=== PATIENT | female | born 1990 | race American Indian/Alaskan Native ===

== ENCOUNTER 2019-04-21 10:37 | Outpatient (CLI) | payer OTHER | END 2019-04-21 13:33 | disposition home or self-care (01) | LOC: LAB 10:37 → TRG 13:08 → LAB 13:33 | PROVIDERS: ATTEND Nurse Practitioner Women's Health | DX: O26.893 Other specified pregnancy related conditions, third trimester (principal); Z3A.28 28 weeks gestation of pregnancy; Z67.21 Type B blood, Rh negative | CPT/HCPCS: 86850; 86900; 86901; 96372; J2790 ==

== ENCOUNTER 2019-07-10 15:28 | Observation (INO) | payer OTHER ==
[2019-07-10] MEDS ORDERED: LORazepam 2 MG/ML VIAL IV ONE (16:02)
[2019-07-10] MEDS ORDERED: SODIUM CHLORIDE 0.9% 1000 ML 1,000 ML IV ONE (16:02)
[2019-07-10] MEDS ORDERED: MAGNESIUM SULFATE 4 GM/100 ML BAG IV ONE (16:03)
--- NOTE | 2019-07-10 16:23 | Emergency Department Report ---
ED General Adult HPI - General Chief complaint: Seizure Stated complaint: SEZUIRE Time Seen by Provider: 07/10/19 16:02 Source: patient Mode of arrival: Wheelchair Limitations: No Limitations - History of Present Illness Initial comments: Patient is a 28-year-old F Slovak female who is 4 days status post with delivery of a healthy child who is had a seizure prior to arrival. Patient is never had a history of seizures. She was not diagnosed with preeclampsia during her . Patient was at home about to take a nap and then the next thing she knew she was in the ambulance. Her significant other stated that she was having tonic-clonic movements and was postictal prior to arrival. Patient states she has very mild headache at this time but otherwise feels well. - Related Data Home Medications Medication Instructions Recorded Confirmed Last Taken Valacyclovir HCl [Valacyclovir] 1 tab PO QDAY 07/03/19 07/03/19 07/03/19 12:00 Previous Rx's Medication Instructions Recorded Last Taken Type Ferrous Sulfate [Feosol 325 MG tab] 325 mg PO BID #60 tablet 07/06/19 Unknown Rx Ibuprofen [Motrin 800 MG tab] 800 mg PO Q8HR PRN #30 tablet 07/06/19 Unknown Rx oxyCODONE /ACETAMINOPHEN [Percocet 1 tab PO Q6HR PRN #40 tablet 07/06/19 Unknown Rx 5/325] Allergies Allergy/AdvReac Type Severity Reaction Status Date / Time No Known Allergies Allergy Verified 04/21/19 13:11 ED Review of Systems ROS: Stated complaint: SEZUIRE Other details as noted in HPI Comment: All other systems reviewed and negative ED Past Medical Hx - Past Medical History Previous Medical History?: No Hx Hypertension: No Hx Heart Attack/AMI: No Hx Congestive Heart Failure: No Hx Diabetes: No Hx Deep Vein Thrombosis: No Hx Liver Disease: No Hx Renal Disease: No Hx Sickle Cell Disease: No Hx Seizures: No Hx Asthma: No Hx COPD: No Hx HIV: No - Surgical History Past Surgical History?: Yes Hx Pacemaker: No Hx Internal Defibrillator: No Additional Surgical History: C section. tonsilectomy - Social History Smoking Status: Never Smoker - Medications Home Medications: Home Medications Medication Instructions Recorded Confirmed Last Taken Type Valacyclovir HCl [Valacyclovir] 1 tab PO QDAY 07/03/19 07/03/19 07/03/19 12:00 History Ferrous Sulfate [Feosol 325 MG tab] 325 mg PO BID #60 tablet 07/06/19 Unknown Rx Ibuprofen [Motrin 800 MG tab] 800 mg PO Q8HR PRN #30 tablet 07/06/19 Unknown Rx oxyCODONE /ACETAMINOPHEN [Percocet 1 tab PO Q6HR PRN #40 tablet 07/06/19 Unknown Rx 5/325] ED Physical Exam - General Limitations: No Limitations General appearance: alert, in no apparent distress - Head Head exam: Present: atraumatic, normocephalic - Eye Eye exam: Present: normal appearance - ENT ENT exam: Present: mucous membranes moist - Neck Neck exam: Present: normal inspection - Respiratory Respiratory exam: Present: normal lung sounds bilaterally. Absent: respiratory distress, wheezes, rales - Cardiovascular Cardiovascular Exam: Present: regular rate, normal rhythm, normal heart sounds. Absent: systolic murmur, diastolic murmur, rubs, gallop - GI/Abdominal GI/Abdominal exam: Present: soft, normal bowel sounds. Absent: distended, tenderness, guarding, rebound - Extremities Exam Extremities exam: Present: normal inspection - Back Exam Back exam: Present: normal inspection - Neurological Exam Neurological exam: Present: alert, oriented X3 - Psychiatric Psychiatric exam: Present: normal affect, normal mood - Skin Skin exam: Present: warm, dry, intact, normal color. Absent: rash ED Course Vital Signs 07/10/19 07/10/19 07/10/19 15:49 15:54 16:31 Temperature 98.2 F Pulse Rate 120 H Respiratory 22 Rate Blood Pressure 148/95 O2 Sat by Pulse 100 98 Oximetry 07/10/19 07/10/19 07/10/19 16:35 16:46 17:00 Temperature 98.4 F Pulse Rate 114 H 114 H Respiratory 24 14 Rate Blood Pressure 150/85 150/85 150/85 O2 Sat by Pulse 100 100 100 Oximetry 07/10/19 17:16 Temperature Pulse Rate 99 H Respiratory 31 H Rate Blood Pressure 146/94 O2 Sat by Pulse 99 Oximetry ED Medical Decision Making - Lab Data Result diagrams: 07/10/19 16:24 07/10/19 16:24 Lab Results 07/10/19 07/10/19 07/10/19 Range/Units 16:15 16:24 16:24 WBC 11.3 H (4.5-11.0) K/mm3 RBC 3.83 (3.65-5.03) M/mm3 Hgb 10.8 (10.1-14.3) gm/dl Hct 31.6 (30.3-42.9) % MCV 82 (79-97) fl MCH 28 (28-32) pg MCHC 34 (30-34) % RDW 16.2 H (13.2-15.2) % Plt Count 435 (140-440) K/mm3 Lymph % (Auto) 9.8 L (13.4-35.0) % Harmon % (Auto) 4.0 (0.0-7.3) % Eos % (Auto) 0.8 (0.0-4.3) % Baso % (Auto) 0.2 (0.0-1.8) % Lymph # 1.1 L (1.2-5.4) K/mm3 Harmon # 0.5 (0.0-0.8) K/mm3 Eos # 0.1 (0.0-0.4) K/mm3 Baso # 0.0 (0.0-0.1) K/mm3 Seg Neutrophils % 85.2 H (40.0-70.0) % Seg Neutrophils # 9.6 H (1.8-7.7) K/mm3 Sodium 139 (137-145) mmol/L Potassium 3.7 (3.6-5.0) mmol/L Chloride 105.6 (98-107) mmol/L Carbon Dioxide 19 L (22-30) mmol/L Anion Gap 18 mmol/L BUN 13 (7-17) mg/dL Creatinine 1.0 (0.7-1.2) mg/dL Estimated GFR > 60 ml/min BUN/Creatinine Ratio 13 % Glucose 84 (65-100) mg/dL Calcium 8.4 (8.4-10.2) mg/dL Total Bilirubin 0.20 (0.1-1.2) mg/dL AST 24 (5-40) units/L ALT 16 (7-56) units/L Alkaline Phosphatase 114 (35-129) units/L Total Protein 7.0 (6.3-8.2) g/dL Albumin 3.1 L (3.9-5) g/dL Albumin/Globulin Ratio 0.8 % Urine Color Colorless (Yellow) Urine Turbidity Clear (Clear) Urine pH 7.0 (5.0-7.0) Ur Specific [place] 1.003 (1.003-1.030) Urine Protein <15 mg/dl (Negative) mg/dL Urine Glucose (UA) Neg (Negative) mg/dL Urine Ketones Neg (Negative) mg/dL Urine Blood Lg (Negative) Urine Nitrite Neg (Negative) Urine Bilirubin Neg (Negative) Urine Urobilinogen < 2.0 (<2.0) mg/dL Ur Leukocyte Esterase Neg (Negative) Urine WBC (Auto) 1.0 (0.0-6.0) /HPF Urine RBC (Auto) 1.0 (0.0-6.0) /HPF U Epithel Cells (Auto) < 1.0 (0-13.0) /HPF - Medical Decision Making Patient will be admitted for observation at labor and delivery. the assumption os mthat the patient does have eclampsia. Critical care attestation.: If time is entered above; I have spent that time in minutes in the direct care of this critically ill patient, excluding procedure time. ED Disposition Clinical Impression: Eclampsia Disposition: DC-09 OP ADMIT IP TO THIS HOSP Is pt being admited?: No Does the pt Need Aspirin: No Condition: Stable Time of Disposition: 17:38
[2019-07-10 16:33] LABS: Bilirubin,Urine NEG (Negative); Blood,Urine LG (Negative); Color,Urine Colorless (Yellow); Protein,Urine <15 mg/dL mg/dL (Negative); Urobilinogen,Urine < 2.0 mg/dL (<2.0)
[2019-07-10 17:02] LABS: Basophils % (Auto) 0.2 % (0.0-1.8); Eosinophils # (Auto) 0.1 K/mm3 (0.0-0.4); Eosinophils % (Auto) 0.8 % (0.0-4.3); Hematocrit 31.6 % (30.3-42.9); Hemoglobin 10.8 gm/dl (10.1-14.3); Lymphocytes # (Auto) 1.1 K/mm3 (1.2-5.4); Lymphocytes % (Auto) 9.8 % (13.4-35.0); Mean Corpuscular HGB Conc 34 % (30-34); Mean Corpuscular Volume 82 fl (79-97); Monocytes # (Auto) 0.5 K/mm3 (0.0-0.8); Platelet Count 435 K/mm3 (140-440); Red Blood Count 3.83 M/mm3 (3.65-5.03); Red Cell Distribution Width 16.2 % (13.2-15.2)
[2019-07-10 17:25] LABS: Alanine Aminotransferase 16 units/L (7-56); Albumin 3.1 g/dL (3.9-5); BUN/Creatinine Ratio 13; Blood Urea Nitrogen 13 mg/dL (7-17); Calcium 8.4 mg/dL (8.4-10.2); Hemolysis Index 1
[2019-07-10] MEDS ORDERED: PROMETHAZINE 25 MG TAB PO PRN (17:50)
[2019-07-10] MEDS ORDERED: WITCH HAZEL/ GLYCERIN PAD TP PRN (17:50)
[2019-07-10] MEDS ORDERED: PROMETHAZINE 25 MG RECT SUPP PR PRN (17:50)
[2019-07-10] MEDS ORDERED: ONDANSETRON 4 MG/2 ML INJ IV PRN (17:50)
[2019-07-10] MEDS ORDERED: LANOLIN/ZINC/DIMETHICONE (LANSINOH) 7 GM TP PRN (17:50)
[2019-07-10] MEDS ORDERED: diphenhydrAMINE 25 MG CAP PO PRN (17:50)
[2019-07-10] MEDS ORDERED: IBUPROFEN 600 MG TAB PO ONE (18:41)
[2019-07-10] MEDS: IBUPROFEN 600 MG TAB PO SCH (18:42)
[2019-07-10] MEDS: LACTATED RINGERS 1,000 ML IV SCH (22:30)
[2019-07-10] MEDS ORDERED: MAGNESIUM SULFATE 40GM/1000ML 40 GM/1,000 ML BAG IV SCH (23:00)
[2019-07-11] MEDS: IBUPROFEN 600 MG TAB PO SCH ×3 (06:35→23:49)
--- NOTE | 2019-07-11 06:56 | History and Physical Report ---
History of Present Illness Date of examination: 07/11/19 Date of admission: 07/10/19 17:51 Chief complaint: " I had a seizure" History of present illness: This is a 28 yo PP day 4 here after having a tonic clonic seizure and appeared in the Er. 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 denies: smoking, alcohol abuse, prescription drug abuse - Obstetrical History : 2 Medications and Allergies Allergies Allergy/AdvReac Type Severity Reaction Status Date / Time No Known Allergies Allergy Verified 04/21/19 13:11 Home Medications Medication Instructions Recorded Confirmed Last Taken Type Valacyclovir HCl [Valacyclovir] 1 tab PO QDAY 07/03/19 07/03/19 07/03/19 12:00 History Ferrous Sulfate [Feosol 325 MG tab] 325 mg PO BID #60 tablet 07/06/19 Unknown Rx Ibuprofen [Motrin 800 MG tab] 800 mg PO Q8HR PRN #30 tablet 07/06/19 Unknown Rx oxyCODONE /ACETAMINOPHEN [Percocet 1 tab PO Q6HR PRN #40 tablet 07/06/19 Unknown Rx 5/325] Active Meds: Active Medications Acetaminophen (Tylenol) 650 mg PO Q4H PRN PRN Reason: Pain MILD(1-3)/Fever >100.5/MARTINEZ Bisacodyl (Dulcolax) 10 mg [place] BID PRN PRN Reason: Constipation Diphenhydramine HCl (Benadryl) 25 mg PO Q6H PRN PRN Reason: Itching Magnesium Sulfate (Magnesium Sulfate 40gm/1000ml) 40 gm in 1,000 mls @ 50 mls/hr IV DIRECT [place] Last Admin: 07/10/19 22:30 Dose: 2 gm/hr, 50 mls/hr Documented by: Lactated Ringer's (Lactated Ringers) 1,000 mls @ 75 mls/hr IV DIRECT [place] Last Admin: 07/10/19 22:30 Dose: 75 mls/hr Documented by: Ibuprofen (Ibuprofen) 600 mg PO Q6H [place] Last Admin: 07/11/19 06:35 Dose: 600 mg Documented by: Multi-Ingredient Ointment (Lansinoh) 1 applic TP PRN PRN PRN Reason: Sore Nipples Ondansetron HCl (Zofran) 4 mg IV Q8H PRN PRN Reason: Nausea And Vomiting Promethazine HCl (Phenergan) 25 mg [place] Q6H PRN PRN Reason: Nausea And Vomiting Promethazine HCl (Phenergan) 25 mg PO Q6H PRN PRN Reason: Nausea And Vomiting Sodium Chloride (Sodium Chloride Flush Syringe 10 Ml) 10 ml IV PRN NR Stop: 07/13/19 17:59 Witch Kalee/Glycerin (Tucks Pad) 1 each TP PRN PRN PRN Reason: Hemorrhoid/cleansing/soothing Review of Systems All systems: negative - Vital Signs Vital signs: Vital Signs Pulse Resp BP Pulse Ox 120 H 22 148/95 100 07/10/19 15:49 07/10/19 15:49 07/10/19 15:49 07/10/19 15:49 Temp Pulse Resp BP Pulse Ox 98.1 F 84 18 148/81 90 07/11/19 03:44 07/11/19 06:50 07/11/19 03:44 07/11/19 06:49 07/11/19 06:50 - Physical Exam Breasts: Positive: normal Cardiovascular: Regular rate, Normal S1 Lungs: Positive: Clear to auscultation, Normal air movement Abdomen: Positive: normal appearance, soft, normal bowel sounds. Negative: distention, tenderness, guarding Genitourinary (Female): Positive: normal external genitalia, normal perenium Vagina: Positive: normal moisture Uterus: Positive: normal size, normal contour Anus/Rectum: Positive: normal perianal skin Extremities: Positive: normal Results Result Diagrams: 07/10/19 16:24 07/10/19 16:24 Abnormal lab results 07/10/19 07/10/19 07/10/19 Range/Units 16:24 16:24 16:24 WBC 11.3 H (4.5-11.0) K/mm3 RDW 16.2 H (13.2-15.2) % Lymph % (Auto) 9.8 L (13.4-35.0) % Lymph # 1.1 L (1.2-5.4) K/mm3 Seg Neutrophils % 85.2 H (40.0-70.0) % Seg Neutrophils # 9.6 H (1.8-7.7) K/mm3 Carbon Dioxide 19 L (22-30) mmol/L Uric Acid 8.1 H (3.5-7.6) mg/dL Magnesium (1.7-2.3) mg/dL Albumin 3.1 L (3.9-5) g/dL 07/11/19 Range/Units 00:31 WBC (4.5-11.0) K/mm3 RDW (13.2-15.2) % Lymph % (Auto) (13.4-35.0) % Lymph # (1.2-5.4) K/mm3 Seg Neutrophils % (40.0-70.0) % Seg Neutrophils # (1.8-7.7) K/mm3 Carbon Dioxide (22-30) mmol/L Uric Acid (3.5-7.6) mg/dL Magnesium 3.30 H (1.7-2.3) mg/dL Albumin (3.9-5) g/dL All other labs normal. Assessment and Plan A/P PPD4 eclamptic seizure vs tonic clonic seiaure HTN admit mag sulfate for pree labetolol for BP copntorl consult with neurology continue present mgt
[2019-07-11] MEDS: ACETAMINOPHEN 325 MG TAB PO PRN ×2 (09:38→21:48)
[2019-07-11] MEDS: LACTATED RINGERS 1,000 ML IV SCH (09:40)
[2019-07-11 11:04] LABS: Hematocrit 29.1 % (30.3-42.9); Hemoglobin 10.2 gm/dl (10.1-14.3)
--- NOTE | 2019-07-11 11:10 | Consultation ---
History of Present Illness Consult date: 07/11/19 Requesting physician: MELY FOSS Reason for Consult: seizure Chief complaint: i had a seizure History of present illness: 28-year-old female prior and termination at the age of 20-second with recent of a healthy girl on the of this month epidural without complication No prior history of neurologic disease no prior history of febrile seizures no epilepsy in the family Patient was sent home postop and states she was feeling tired poor sleep No positional headaches during her time postop at home but she did have a low- grade headache she felt was due to lack of food intake Yesterday patient was laying down with her new baby fluffing the pillows and that is the last thing she remembers she woke up in the ambulance and was being brought to the hospital She denies any tongue biting or bowel or bladder incontinence she states her boyfriend saw her full body seizures described in the chart as tonic-clonic movements foaming at the mouth No prior history of seizures during the no history of eclampsia or preeclampsia Patient's blood pressures are usually in the 90s 100s systolic she arrived blood pressures in the 150s systolic No new medications other than oxycodone and iron patient denies any antidepressants or tramadol no recent antibiotics Since admission no recurrent seizures and patient denies any focal brain defic its Patient denies any change in vision speech swallow no double vision no bowel and bladder dysfunction denies any new spine pain radicular pains confusion hallucinations denies any recent fevers neck stiffness rash patient denies any active feelings of nausea, no vomiting this morning no vertigo no visual field cut no new numbness tingling loss of function lateralizing deficits no new difficulty with coordination Patient describes pain at her surgical site / Patient is planning on breast-feeding She is remained stable since admission she was given magnesium on admission along with labetalol blood pressures still slightly elevated 140s to 160s systolic Laboratory elevated white count otherwise CBC CMP within normal limits Currently describes a low-grade headache global cephalic no migraine symptoms non-positional There is no mention of a complicated epidural to concern for a CSF leak Discussed case with 2 HEALTH SERVICES DIRECTOR and doctors including Dr. Foss who state post eclampsia is common up to 10 days Patient has had a headache like this in the past Again no recurrent seizures since admission no focal brain complaints stable hospital course Eating and drinking without difficulty patient has a Shea with clear yellow hinted urine No head imaging to review Today will be day 5 status post and patient's symptoms started yesterday afternoon chart review Patient is a 28-year-old F [place] female who is 4 days status post with delivery of a healthy child who is had a seizure prior to arrival. Patient is never had a history of seizures. She was not diagnosed with preeclampsia during her . Patient was at home about to take a nap and then the next thing she knew she was in the ambulance. Her significant other stated that she was having tonic-clonic movements and was postictal prior to arrival. Patient states she has very mild headache at this time but otherwise feels well. Review of systems all other systems negative Family history negative for neurologic disease Social history no alcohol tobacco or drug Allergies NKA Past History Social history: single. denies: smoking, alcohol abuse, prescription drug abuse Medications and Allergies Allergies Allergy/AdvReac Type Severity Reaction Status Date / Time No Known Allergies Allergy Verified 04/21/19 13:11 Home Medications Medication Instructions Recorded Confirmed Last Taken Type Valacyclovir HCl [Valacyclovir] 1 tab PO QDAY 07/03/19 07/11/19 07/03/19 12:00 History Ferrous Sulfate [Feosol 325 MG tab] 325 mg PO BID #60 tablet 07/06/19 07/11/19 07/05/19 Rx Ibuprofen [Motrin 800 MG tab] 800 mg PO Q8HR PRN #30 tablet 07/06/19 07/11/19 07/10/19 Rx oxyCODONE /ACETAMINOPHEN [Percocet 1 tab PO Q6HR PRN #40 tablet 07/06/19 07/11/19 07/07/19 Rx 5/325] Active Meds: Active Medications Acetaminophen (Tylenol) 650 mg PO Q4H PRN PRN Reason: Pain MILD(1-3)/Fever >100.5/MARTINEZ Last Admin: 07/11/19 09:38 Dose: 650 mg Documented by: Bisacodyl (Dulcolax) 10 mg [place] BID PRN PRN Reason: Constipation Diphenhydramine HCl (Benadryl) 25 mg PO Q6H PRN PRN Reason: Itching Magnesium Sulfate (Magnesium Sulfate 40gm/1000ml) 40 gm in 1,000 mls @ 50 mls/hr IV DIRECT [place] Last Admin: 07/10/19 22:30 Dose: 2 gm/hr, 50 mls/hr Documented by: Lactated Ringer's (Lactated Ringers) 1,000 mls @ 75 mls/hr IV DIRECT [facility] Last Admin: 07/11/19 09:40 Dose: 75 mls/hr Documented by: Ibuprofen (Ibuprofen) 600 mg PO Q6H [facility] Last Admin: 07/11/19 06:35 Dose: 600 mg Documented by: Labetalol HCl (Labetalol) 100 mg PO BID [facility] Last Admin: 07/11/19 09:39 Dose: 100 mg Documented by: Multi-Ingredient Ointment (Lansinoh) 1 applic TP PRN PRN PRN Reason: Sore Nipples Ondansetron HCl (Zofran) 4 mg IV Q8H PRN PRN Reason: Nausea And Vomiting Promethazine HCl (Phenergan) 25 mg [place] Q6H PRN PRN Reason: Nausea And Vomiting Promethazine HCl (Phenergan) 25 mg PO Q6H PRN PRN Reason: Nausea And Vomiting Sodium Chloride (Sodium Chloride Flush Syringe 10 Ml) 10 ml IV PRN NR Stop: 07/13/19 17:59 Witch Kalee/Glycerin (Tucks Pad) 1 each TP PRN PRN PRN Reason: Hemorrhoid/cleansing/soothing Physical Examination - Vital Signs Vital Signs: Vital Signs Pulse Resp BP Pulse Ox 120 H 22 148/95 100 07/10/19 15:49 07/10/19 15:49 07/10/19 15:49 07/10/19 15:49 - Physical Exam Narrative exam: No extra movements no neck stiffness AO x4 no aphasia no agnosia no apraxia Tone is symmetrical throughout - Constitutional General appearance: comfortable - Respiratory Respiratory: Present: no respiratory distress - Cardiovascular Extremities: Present: no peripheral edema bilatateraly - Integumentary Integumentary: Present: normal - Neurologic [place] Coma Scale (3-15): 15 Cranial nerve examination: PERRL, EOMI, VFF, V1/V2/V3 grossly intact, face symmetric, tongue midline, intact, normal palatal elevation Speech examination: intact Sensorimotor examination: intact Detailed motor examination: grossly full strength in Detailed sensory examination: intact, light touch - Musculoskeletal Musculoskeletal: Present: no fluid collection, no pain, normal range of motion - Psychiatric Psychiatric: Present: mood/affect appropriate, cooperative Results - Laboratory Findings CBC and BMP: 07/11/19 10:53 07/10/19 16:24 Abnormal Lab Findings: Abnormal Labs 07/10/19 07/10/19 07/10/19 16:24 16:24 16:24 WBC 11.3 H RDW 16.2 H Lymph % (Auto) 9.8 L Lymph # 1.1 L Seg Neutrophils % 85.2 H Seg Neutrophils # 9.6 H Carbon Dioxide 19 L Uric Acid 8.1 H Magnesium Albumin 3.1 L 07/11/19 00:31 WBC RDW Lymph % (Auto) Lymph # Seg Neutrophils % Seg Neutrophils # Carbon Dioxide Uric Acid Magnesium 3.30 H Albumin Assessment and Plan Seizures likely related to eclampsia, stable Patient's blood pressures live around 90-100 systolic she is now in the 150s average this is reaching ~hypertensive urgency numbers for the patient No prior history of epilepsy or seizure disorder 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 Foss about the case and we both agree that as long as patient remains stable I do not necessarily need any head imaging based on history and exam Avoid medications that may lower the seizure threshold, avoid sleep deprivation, avoid rapid position change Patient will be monitored up to 48 hours Continue Tylenol for headache pain Patient wants to breast-feed at this time no indication for AED 80 minutes was spent on this case discussing diagnosis and treatment options with the patient along with discussing case with Dr. Foss and completing chart review Scheduled magnesium and labetalol
[2019-07-11] MEDS ORDERED: hydrALAZINE 20 MG/1 ML INJ IV PRN (11:30)
--- NOTE | 2019-07-11 17:05 | Magnetic Resonance Report ---
MR brain wo con INDICATION / CLINICAL INFORMATION: 28 years Female; NEW ONSET OF SEIZURE AND NOW BLURRED VISION. TECHNIQUE: Multiplanar, multisequence MR images of the brain were obtained. COMPARISON: None available. FINDINGS: BRAIN / INTRACRANIAL CONTENTS: Hippocampal regions are normal in appearance. No acute hemorrhage, mass effect, midline shift, hydrocephalus, or acute, large territorial infarct. No chronic infarct or atrophy. No significant white matter abnormality. CRANIOCERVICAL JUNCTION: No significant abnormality. VASCULAR FLOW-VOIDS: No significant abnormality. ORBITS: No significant abnormality of visualized orbits. SINUSES / MASTOIDS: Minimal mucosal thickening in the ethmoids. ADDITIONAL FINDINGS: Prominent soft tissue is seen in the roof the nasopharynx, presumably related to reactive adenoidal tissue. Please clinically correlate. IMPRESSION: 1. No focal mass, hemorrhage, hydrocephalus, or acute ischemia. Signer Name: Roque Johnson MD, III Signed: 07/11/2019 5:01 PM Workstation Name: [id number]
[2019-07-11] MEDS ORDERED: HYDROmorphone 1 MG/1 ML INJ IV ONE (17:51)
[2019-07-12] MEDS: IBUPROFEN 600 MG TAB PO SCH ×4 (05:34→20:25)
--- NOTE | 2019-07-12 09:07 | Progress Note ---
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 no need for EEG NO need for neuro f/u unless recurrent sz provoked sz, less likely will recurr, sz precautions strict BP control signing off thank you Subjective Date of service: 07/12/19 Principal diagnosis: seizure, MARTINEZ Interval history: blurred vision last night, ordered MRI b , neg, I reviewed images personally and agree MARTINEZ low pain 4/10 global, non rad, non migraine, no new feature gave dilaudid, helped a lot today , no new neuro complaints no MARTINEZ no blurred vision BP still elevated, up to 170s sys no n/v dv, vertigo, change of coordination or field cut no focal brain complaints no fevers no events overnight no further sz since admission Objective - Exam Narrative Exam: aaa x o x 3 no aphasia cn 2-12 intact vision is normal , no dv no extra movements no neck stiff sensory intact LT VFF - Vital Sign Vital Signs - 12hr 07/11/19 07/11/19 07/11/19 21:26 21:30 21:40 Temperature Pulse Rate 95 H 95 H 90 Respiratory 18 Rate Blood Pressure 169/72 169/70 Blood Pressure 169/70 [Right] O2 Sat by Pulse 100 Oximetry 07/11/19 07/11/19 07/11/19 21:47 21:48 21:56 Temperature Pulse Rate 95 H 94 H Respiratory 18 Rate Blood Pressure 169/70 139/65 Blood Pressure [Right] O2 Sat by Pulse Oximetry 07/11/19 07/11/19 07/11/19 22:26 22:56 23:24 Temperature Pulse Rate 96 H 92 H 88 Respiratory Rate Blood Pressure 110/59 161/84 136/70 Blood Pressure [Right] O2 Sat by Pulse Oximetry 07/11/19 07/11/19 07/11/19 23:28 23:39 23:49 Temperature 97.7 F Pulse Rate 88 86 Respiratory 18 18 Rate Blood Pressure 152/84 Blood Pressure 136/70 [Right] O2 Sat by Pulse 99 Oximetry 07/12/19 07/12/19 07/12/19 00:05 05:20 05:34 Temperature 98.9 F 98.7 F Pulse Rate 90 86 Respiratory 19 18 18 Rate Blood Pressure 152/93 Blood Pressure 139/78 [Right] O2 Sat by Pulse 99 98 Oximetry - General Apperance Constitutional: comfortable - Neurologic Cranial nerve examination: PERRL, EOMI, VFF, V1/V2/V3 grossly intact, face symmetric, tongue midline, intact Speech examination: intact Detailed motor examination: grossly full strength in - Psychiatric Psychiatric: mood/affect appropriate - Laboratory Findings CBC and BMP: 07/11/19 10:53 07/10/19 16:24 Abnormal Lab Findings: Abnormal Labs 07/10/19 07/10/19 07/10/19 16:24 16:24 16:24 WBC 11.3 H Hct RDW 16.2 H Lymph % (Auto) 9.8 L Lymph # 1.1 L Seg Neutrophils % 85.2 H Seg Neutrophils # 9.6 H Carbon Dioxide 19 L Uric Acid 8.1 H Magnesium Albumin 3.1 L 07/11/19 07/11/19 07/11/19 00:31 10:53 10:53 WBC Hct 29.1 L RDW Lymph % (Auto) Lymph # Seg Neutrophils % Seg Neutrophils # Carbon Dioxide Uric Acid Magnesium 3.30 H 4.60 H Albumin 07/11/19 07/11/19 07/11/19 13:17 15:27 21:07 WBC Hct RDW Lymph % (Auto) Lymph # Seg Neutrophils % Seg Neutrophils # Carbon Dioxide Uric Acid Magnesium 5.50 H 4.40 H 5.50 H Albumin
--- NOTE | 2019-07-12 09:46 | Progress Note ---
Assessment and Plan - Patient Problems (1) Eclampsia Current Visit: Yes Status: Acute Plan to address problem: Patient with clinical improvement Increase labetalol to 300 mg twice per day Consider discharge home tomorrow Subjective - Subjective Date of service: 07/12/19 Principal diagnosis: seizure, MARTINEZ Interval history: Patient is without any neurological complaints today. She is sitting at the bedside with a breast pump. She reports significant improvement in her symptoms. Blood pressures remain labile currently on labetalol 100mg twice a day. Will increase labetalol dosage and continue to monitor patient overnight. Patient reports: appetite normal, voiding normally, pain well controlled Objective - Vital Signs Latest vital signs: Vital Signs Temp Pulse Resp BP BP Pulse Ox 07/12/19 08:08 98.9 F 87 20 152/88 98 07/12/19 05:34 18 07/12/19 05:20 98.7 F 86 18 152/93 98 07/12/19 00:05 98.9 F 90 19 139/78 99 07/11/19 23:49 18 07/11/19 23:39 86 152/84 07/11/19 23:28 97.7 F 88 18 136/70 99 07/11/19 23:24 88 136/70 07/11/19 22:56 92 H 161/84 07/11/19 22:26 96 H 110/59 07/11/19 21:56 94 H 139/65 07/11/19 21:48 18 07/11/19 21:47 95 H 169/70 07/11/19 21:40 90 18 169/70 100 07/11/19 21:30 95 H 169/70 07/11/19 21:26 95 H 169/72 07/11/19 20:56 100 H 182/81 07/11/19 20:26 89 143/67 07/11/19 20:03 97.7 F 96 H 18 134/61 98 07/11/19 19:56 96 H 134/61 07/11/19 19:26 93 H 143/82 07/11/19 18:56 99 H 140/82 07/11/19 18:20 100 H 146/83 07/11/19 18:14 104 H 171/90 07/11/19 18:00 98 H 165/86 07/11/19 17:43 96 H 155/94 07/11/19 17:41 96 H 159/96 07/11/19 17:36 87 163/98 07/11/19 17:11 87 163/98 07/11/19 16:48 90 155/96 07/11/19 15:31 89 93 07/11/19 15:30 93 H 99 07/11/19 15:25 90 99 07/11/19 15:20 89 99 07/11/19 15:15 90 97 07/11/19 15:11 90 161/91 07/11/19 15:10 89 99 07/11/19 15:07 88 163/94 07/11/19 15:05 92 H 98 07/11/19 15:00 98 H 99 07/11/19 14:55 93 H 99 07/11/19 14:50 101 H 97 07/11/19 14:45 93 H 99 07/11/19 14:40 93 H 98 07/11/19 14:35 93 H 98 07/11/19 14:30 89 98 07/11/19 14:25 94 H 98 07/11/19 14:20 98.7 F 91 H 99 07/11/19 14:15 88 99 07/11/19 14:11 92 H 136/90 07/11/19 14:10 94 H 99 07/11/19 14:05 95 H 98 07/11/19 14:00 94 H 97 07/11/19 13:55 93 H 97 07/11/19 13:50 100 H 97 07/11/19 13:45 90 98 07/11/19 13:40 99 H 99 07/11/19 13:35 96 H 98 07/11/19 13:30 98 H 98 07/11/19 13:25 97 H 153/90 97 07/11/19 13:20 91 H 97 07/11/19 13:15 92 H 95 07/11/19 13:10 93 H 95 07/11/19 13:05 92 H 95 07/11/19 13:00 92 H 95 07/11/19 12:55 93 H 95 07/11/19 12:50 90 96 07/11/19 12:45 88 95 07/11/19 12:40 90 96 07/11/19 12:35 92 H 95 07/11/19 12:30 91 H 95 07/11/19 12:25 91 H 96 03/31/20 12:20 90 96 07/11/19 12:15 83 96 07/11/19 12:10 85 97 07/11/19 12:05 92 H 92 07/11/19 12:03 89 94 07/11/19 12:00 87 91 07/11/19 11:55 90 91 07/11/19 11:50 85 91 07/11/19 11:45 84 97 07/11/19 11:44 85 89 07/11/19 11:40 86 97 07/11/19 11:38 88 94 07/11/19 11:35 84 97 07/11/19 11:29 97 H 99 07/11/19 11:24 91 H 98 07/11/19 11:19 95 H 141/82 98 07/11/19 11:14 94 H 100 07/11/19 11:09 96 H 98 07/11/19 11:04 96 H 99 07/11/19 10:59 98 H 99 07/11/19 10:55 97 H 92 07/11/19 10:54 92 H 100 07/11/19 10:49 94 H 100 07/11/19 10:48 96 H 147/88 07/11/19 10:44 94 H 100 07/11/19 10:39 98 H 98 07/11/19 10:34 95 H 100 07/11/19 10:29 95 H 99 07/11/19 10:24 97 H 99 07/11/19 10:19 97 H 100 07/11/19 10:18 105 H 146/91 07/11/19 10:14 101 H 100 07/11/19 10:09 99 H 98 07/11/19 10:04 99 H 99 07/11/19 09:59 101 H 99 07/11/19 09:54 96 H 99 07/11/19 09:49 106 H 99 07/11/19 09:48 103 H 150/96 Intake and Output 07/11/19 07/12/19 07/12/19 22:59 06:59 14:59 Intake Total 360 Output Total 3500 1350 Balance -3500 -990 Intake: Intake, Free Water 360 Output: Urine 3500 1350 Indwelling Catheter 3500 1350 Other: Total, Output Amount 550 1350 # Voids Void 2 - Labs Labs: Abnormal lab results 03/31/20 03/31/20 03/31/20 Range/Units 10:53 10:53 13:17 Hct 29.1 L (30.3-42.9) % Magnesium 4.60 H 5.50 H (1.7-2.3) mg/dL 07/11/19 07/11/19 Range/Units 15:27 21:07 Hct (30.3-42.9) % Magnesium 4.40 H 5.50 H (1.7-2.3) mg/dL
--- NOTE | 2019-07-13 08:10 | Progress Note ---
Assessment and Plan A: s/p elcamptic seizure VSS on Labetalol 300mg BID Mild anemia due to post-op status P: Discharge to home today with close outpatient follow up Subjective - Subjective Date of service: 07/13/19 Principal diagnosis: seizure, MARTINEZ Interval history: POD7, HD3 s/p eclamptic seizure. No headache or significant events overnight. Patient reports: appetite normal, voiding normally, pain well controlled, ambulating normally Objective - Vital Signs Latest vital signs: Vital Signs Temp Pulse Resp BP BP Pulse Ox 07/13/19 00:00 98.7 F 71 18 121/77 07/12/19 16:34 98.9 F 88 16 139/67 100 07/12/19 13:12 124/64 07/12/19 08:08 98.9 F 87 20 152/88 98 Intake and Output 07/12/19 07/13/19 07/13/19 23:59 07:59 15:59 Intake Total 300 Balance 300 Intake: Intake, Free Water 300 Other: # Voids Void 1 - Exam Lungs: Present: Normal air movement Abdomen: Present: soft. Absent: distention Uterus: Present: firm, fundal height below umbilicus Extremities: Present: normal Incision: Present: normal, dry, intact
--- NOTE | 2019-07-13 08:12 | Discharge Summary ---
Providers - Providers Date of Admission: 07/10/19 17:51 Date of discharge: 07/13/19 Attending physician: MELY LABOY MD 07/10/19 17:53 Consult to Physician [CONS] Urgent Comment: Consulting Provider: KAELA LUO Physician Instructions: Reason For Exam: PP 4 days with seizure treated for Pree Primary care physician: [facility] DIRECTOR Hospitalization Reason for admission: other (seizure) Hospital course: Pt arrived s/p seizure and was diagnosed with eclampsia. She received mag sulfate infusion x24 hr. She met discharge criteria on HD3. Condition at discharge: Good Disposition: DC-01 TO HOME OR SELFCARE Plan - Discharge Medications Prescriptions: Labetalol HCl [Labetalol 300mg TAB] 300 mg PO BID #60 tablet - Provider Discharge Summary Activity: routine, no sex for 6 weeks, no heavy lifting 4 weeks, no strenuous exercise Diet: routine Instructions: routine Additional instructions: [] Smoking cessation referral if applicable(refer to patient education folder for contact #) [] Refer to [facility] Booklet Call your doctor immediately for: * Fever > 100.5 * Heavy vaginal bleeding ( >1 pad per hour) * Severe persistent headache * Shortness of breath * Reddened, hot, painful area to leg or breast * Drainage or odor from incision. * Keep incision clean and dry at all times and follow doctor's instructions regarding bathing/showering - Follow up plan Follow up: KATARZYNA THORNTON CNM [Advanced Practice Nurse] - 7 Days
[2019-07-13 08:22] VITALS: BP 134/84
== END 2019-07-13 09:30 | disposition home or self-care (01) ==
LOC: ED 15:28 → LD 17:51 → OB 07-12 00:14
PROVIDERS: ADMIT Obstetrics & Gynecology; ATTEND Obstetrics & Gynecology
DX: O14.95 Unspecified pre-eclampsia, complicating the puerperium (principal); O15.2 Eclampsia complicating the puerperium; O16.5 Unspecified maternal hypertension, complicating the puerperium; O99.355 Diseases of the nervous system complicating the puerperium; G40.309 Generalized idiopathic epilepsy and epileptic syndromes, not intractable, without status epilepticus; Z79.899 Other long term (current) drug therapy
CPT/HCPCS: 36415; 70551; 80053; 81001; 83735; 84550; 85014; 85018; 85025; 96365; 96366; 96375; 99284; G0378; J0360; J1170; J2060; J3475; J7030; J7120